=== PATIENT | male | born 1995 | race Caucasian/White ===

== ENCOUNTER 2018-04-19 00:36 | Emergency (ER) | payer OTHER ==
[~2018-04-19] VITALS: Ht 170.2 cm; Wt 136.4 kg
[2018-04-19 00:48] VITALS: TEMP 97.1
[2018-04-19 01:09] LABS: COLLECTION METHOD CLEAN CATCH
[2018-04-19 01:16] LABS: MUCOUS Present /lpf; PH 5 (5-8); SQUAMOUS EPITHELIAL None Seen /hpf; URINE APPEARANCE Clear; URINE BACTERIA None Seen /hpf; URINE BILIRUBIN Negative (NEGATIVE); URINE BLOOD Negative (NEGATIVE); URINE COLOR Yellow; URINE GLUCOSE Negative (NEGATIVE); URINE KETONE Negative (NEGATIVE); URINE LEUKOCYTE ESTERASE Negative (NEGATIVE); URINE NITRATE Negative (NEGATIVE); URINE PROTEIN(semi-quant) Negative (NEGATIVE); URINE RBC 0-2 /hpf; URINE UROBILINOGEN Negative (NEGATIVE)
[2018-04-19 01:28] LABS: BASO # 0.1 (0.0-0.2); BASO % 0.4 % (0.0-2.0); EOS # 0.3 (0.0-0.7); EOS % 2.7 % (0-4.0); GRAN # 7.2 (1.4-6.5); GRAN % 57.9 % (42.2-75.2); HEMOGLOBIN 15.4 g/dl (12.5-16.1); LYMPH # 3.7 (1.2-3.4); LYMPH % 29.8 % (20.0-51.0); MEAN CELL VOLUME 89 fl (80.0-95.0); MEAN CORPUSCULAR HEMOGLOBIN 30 pg (26.0-32.0); MEAN CORPUSCULAR HGB CONC 34 g/dl (33.0-37.0); MEAN PLATELET VOLUME 10.1 fl (7.4-10.4); MONO % 7.9 % (1.7-9.3); PLATELET COUNT 252 K/mm3 (130-400); RED BLOOD COUNT 5.17 M/mm3 (4.20-5.60); REDCELL DISTRIBUTION WIDTH-CV 11.9 % (11.5-14.5)
[2018-04-19 01:41] LABS: BILIRUBIN,TOTAL 0.4 mg/dL (0.0-1.0); C-REACTIVE PROTEIN 1.2 mg/dL (0.0-0.9); CALCIUM 9.2 mg/dL (8.4-10.2); CREATININE, serum 0.78 mg/dL (0.66-1.25); POTASSIUM 4.1 mmol/L (3.4-5.0); TOTAL PROTEIN 6.9 gm/dL (6.4-8.2)
[2018-04-19] MEDS ORDERED: PRILOSEC 20MG20 MG PO (02:46)
[2018-04-19] MEDS ORDERED: ZOFRAN ODT8 MG PO (05:07)
[2018-04-19] MEDS ORDERED: NORCO 325 MG-51 TAB PO (05:09)
[2018-04-19 05:36] VITALS: BP 124/81; PULSE 62
== END 2018-04-19 05:40 | disposition home or self-care (01) ==
LOC: COL.ER 00:36
PROVIDERS: Physician Assistant
DX: I42.9 Cardiomyopathy, unspecified (principal); R10.9 Unspecified abdominal pain
CPT/HCPCS: J1885; J2405; J7030; Q9967